=== PATIENT | male | born 1940 | race Caucasian/White ===

== ENCOUNTER 2020-01-14 08:53 | Inpatient (IN) | payer MEDICARE, OTHER ==
[~2020-01-14] VITALS: Ht 195.6 cm; Wt 109.5 kg
[2020-01-14] MEDS ORDERED: SODIUM CHLORIDE 0.9% 1,000ML IVBOLUS ONE (09:00)
[2020-01-14] MEDS ORDERED: SODIUM CHLORIDE FLUSH 10ML SYR IVF ONE (09:00)
[2020-01-14] MEDS ORDERED: methylPREDNISolone SOD SUCC 125 MG/2 ML IV ONE (09:00)
--- NOTE | 2020-01-14 09:25 | NUR ---
PT REQUESTED BREAK OFF BIPAP, BREAK GIVEN, WATERED PROVIDED, PLACED BACK ON MACHINE TOLERATED WELL
--- NOTE | 2020-01-14 09:50 | NUR ---
pt refusded to continue wearing bipap, requested nasal cannula only, placed on 6l nc, o2 sats [id number]
[2020-01-14 09:52] LABS: MEAN CORPUSCULAR HEMOGLOBIN 30.1 pg (27.5-34.5); MEAN CORPUSCULAR HGB CONC 31.8 g/dL (33.2-36.2); MEAN PLATELET VOLUME 7.7 fL (7.4-10.4); PLATELET COUNT 222 x10^3/uL (130-400); RED BLOOD COUNT 4.82 x10^6/uL (4.38-5.82); RED CELL DISTRIBUTION WIDTH 14.1 % (9.4-14.8)
[2020-01-14 10:00] LABS: ALANINE AMINOTRANSFERASE 26 U/L (12-78); ALBUMIN 3.4 g/dL (3.4-5.0); ANION GAP 9 mmol/L (5-15); CALCIUM 8.9 mg/dL (8.5-10.1); CHLORIDE 110 mmol/L (98-107)
[2020-01-14 10:05] LABS: ALKALINE PHOSPHATASE 147 U/L (45-117); BILIRUBIN,TOTAL 0.7 mg/dL (0.2-1.0); CREATININE 0.84 mg/dL (0.7-1.3); TOTAL PROTEIN 6.8 g/dL (6.4-8.2); TROPONIN I < 0.015 ng/mL (0.000-0.045)
[2020-01-14 10:19] LABS: MD YES
[2020-01-14 10:21] LABS: BAND#(MANUAL) 0.23 x10^3/uL; BANDS%(MANUAL) 1 % (0-7); EOS#(MANUAL) 0.23 x10^3/uL (0.0-0.4); EOS% (MANUAL) 1 % (1-7); LYMPH#(MANUAL) 2.49 x10^3/uL (1-3.4); LYMPHS% (MANUAL) 11 % (22-44); MONOS#(MANUAL) 0.68 x10^3/uL (0.3-2.7); MONOS% (MANUAL) 3 % (2-9); SEG#(MANUAL) 18.98 x10^3/uL (1.8-6.8); SEGS% (MANUAL) 84 % (42-75)
[2020-01-14 10:22] LABS: <PLATELET ESTIMATE> ADEQUATE; <PLT MORPHOLOGY> NORMAL PLT MORPH; <RBC MORPHOLOGY> NORMAL
[2020-01-14] MEDS ORDERED: VANCOMYCIN PER PHARMACY MC PRN ×2 (10:30→12:00)
[2020-01-14] MEDS ORDERED: PHARMACOKINETIC CONSULTATION MC ONE (10:30)
[2020-01-14] MEDS ORDERED: VANCOMYCIN PMX 1GM/200ML 200 ML IV ONE (10:30)
[2020-01-14] MEDS ORDERED: PIPERACILLIN/TAZO/PMX 3.375GM 50 ML IV ONE (10:30)
[2020-01-14] MEDS ORDERED: OMNIPAQUE 350 MG/ML, 75ML BOTTLE ONE (10:38)
[2020-01-14] MEDS ORDERED: PIPERACILLIN/TAZO/PMX 3.375GM 50 ML ONE ×2 (10:52→18:07)
[2020-01-14 10:59] LABS: INTERNATIONAL NORMALIZED RATIO 1.08 (0.93-1.1); PROTHROMBIN TIME 11.4 Seconds (9.6-11.5)
[2020-01-14] MEDS ORDERED: VANCOMYCIN 2,500 MG in SODIUM CHLORIDE 0.9% 500 ML IV ONE (11:00)
--- NOTE | 2020-01-14 11:40 | NUR ---
TASK RN: SUDHA KINGSLEY, VANCOMYCIN ADMINISTERED PER EMAR PATIENT TOLERATING 6L NC WITH MINIMAL WOB, POX 94% PROVIDED WITH WATER/HOSPITAL BED ORDERED
[2020-01-14] MEDS ORDERED: POLYETHYLENE GLYCOL 17 GM PACKET PO PRN (12:00)
[2020-01-14] MEDS ORDERED: ENALAPRILAT 1.25 MG/ML, 2ML IVPush PRN (12:00)
[2020-01-14] MEDS ORDERED: ONDANSETRON 2MG/ML, 2ML IVPush PRN (12:00)
[2020-01-14] MEDS ORDERED: BISACODYL 10 MG SUPP PR PRN (12:00)
[2020-01-14] MEDS ORDERED: ACETAMINOPHEN 325 MG TABLET PO PRN (12:00)
[2020-01-14] MEDS: PIPERACILLIN/TAZO/PMX 3.375GM 50 ML IV SCH ×2 (12:00→18:13)
[2020-01-14] MEDS ORDERED: LABETALOL 5MG/ML, 20ML IVPush PRN (12:00)
--- NOTE | 2020-01-14 14:00 | NUR ---
lila infuisning, water given pt dozing on and off awaiting admit
[2020-01-14] MEDS ORDERED: APIX5TAB PO (18:19)
[2020-01-14] MEDS ORDERED: ATOR40TA78 PO (18:19)
[2020-01-14] MEDS ORDERED: GABA300C PO (18:19)
[2020-01-14] MEDS ORDERED: LATA2.5D2 EACHEYE (18:19)
[2020-01-14] MEDS ORDERED: TIOT18CA INH (18:19)
[2020-01-14] MEDS ORDERED: ZOLP10TA PO (18:19)
[2020-01-14] MEDS ORDERED: OMEP20TA62 PO (18:22)
[2020-01-14] MEDS ORDERED: LOSA100T2 PO (18:22)
[2020-01-14] MEDS ORDERED: DORZ10DR21 EACHEYE (18:22)
[2020-01-14] MEDS ORDERED: AMLO-150 PO (18:22)
[2020-01-14 19:23] VITALS: BP 125/72
[2020-01-14] MEDS ORDERED: PHARMACOKINETIC MONITORING MC PRN (20:00)
[2020-01-14] MEDS ORDERED: APIXABAN 5 MG TABLET PO SCH (20:00)
[2020-01-14] MEDS ORDERED: ZOLPIDEM 10MG TABLET PO ONE (21:00)
[2020-01-14] MEDS ORDERED: DORZOLAMIDE OPHTH 2%, 10ML EACHEYE SCH (21:00)
[2020-01-14] MEDS: APIXABAN 5 MG TABLET PO SCH (21:55)
[2020-01-14] MEDS: LATANOPROST OPHTH 0.005%, 2.5ML EACHEYE SCH (21:56)
[2020-01-14] MEDS ORDERED: BRIM5DRO3 EACHEYE (22:04)
[2020-01-14] MEDS ORDERED: ARTIFICIAL TEARS 15 DROP/ML BOTTLE EACHEYE PRN (22:30)
[2020-01-14] MEDS: BRIMONIDINE TART. OPHTH 0.2%, 5ML EACHEYE SCH (22:31)
[2020-01-15] MEDS: PIPERACILLIN/TAZO/PMX 3.375GM 50 ML IV SCH ×4 (00:29→18:07)
[2020-01-15 01:19] VITALS: BP 117/64
[2020-01-15 06:32] LABS: BASOPHILS % (AUTO) 0 % (0-1); EOSINOPHILS % (AUTO) 1 % (1-7); LYMPHOCYTES % (AUTO) 8 % (22-44); MEAN CORPUSCULAR HEMOGLOBIN 30.4 pg (27.5-34.5); MEAN CORPUSCULAR HGB CONC 32.3 g/dL (33.2-36.2); MEAN PLATELET VOLUME 7.9 fL (7.4-10.4); MONOCYTES % (AUTO) 8 % (2-9); NEUTROPHILS % (AUTO) 83 % (42-75); PLATELET COUNT 176 x10^3/uL (130-400); RED BLOOD COUNT 3.98 x10^6/uL (4.38-5.82); RED CELL DISTRIBUTION WIDTH 14.2 % (9.4-14.8)
[2020-01-15 06:37] LABS: ALANINE AMINOTRANSFERASE 18 U/L (12-78); ANION GAP 5 mmol/L (5-15); CALCIUM 8.8 mg/dL (8.5-10.1); CHLORIDE 112 mmol/L (98-107); CREATININE 0.58 mg/dL (0.7-1.3)
[2020-01-15 06:39] LABS: ALKALINE PHOSPHATASE 111 U/L (45-117); BILIRUBIN,TOTAL 0.8 mg/dL (0.2-1.0); TOTAL PROTEIN 5.9 g/dL (6.4-8.2)
[2020-01-15 06:52] VITALS: BP 131/80
[2020-01-15 07:32] LABS: MD SCAN
[2020-01-15] MEDS ORDERED: APIXABAN 5 MG TABLET PO SCH (08:00)
[2020-01-15] MEDS: APIXABAN 5 MG TABLET PO SCH ×2 (08:31→20:43)
[2020-01-15] MEDS: BRIMONIDINE TART. OPHTH 0.2%, 5ML EACHEYE SCH ×2 (08:32→20:45)
[2020-01-15] MEDS: SENNA/DOCUSATE TABLET PO SCH (08:46)
[2020-01-15] MEDS ORDERED: DORZOLAMIDE OPHTH 2%, 10ML EACHEYE SCH (09:00)
[2020-01-15] MEDS ORDERED: TIOTROPIUM BROMIDE 18 MCG/INH INH SCH (09:00)
[2020-01-15] MEDS: VANCOMYCIN 2,000 MG in SODIUM CHLORIDE 0.9% 500 ML IV SCH (11:00)
[2020-01-15 12:31] VITALS: BP 127/74
[2020-01-15] MEDS: TIOTROPIUM BROMIDE 18 MCG/INH INH SCH (13:00)
[2020-01-15] MEDS: OMEPRAZOLE 20 MG CAPSULE.DR PO SCH (13:20)
[2020-01-15] MEDS: GABAPENTIN 300 MG CAPSULE PO SCH ×3 (13:20→20:42)
[2020-01-15] MEDS: AMLODIPINE 5 MG TABLET PO SCH (13:20)
[2020-01-15] MEDS: LOSARTAN 100 MG TAB PO SCH (13:20)
[2020-01-15] MEDS: ATORVASTATIN 40 MG TABLET PO SCH (20:42)
[2020-01-15] MEDS: MELATONIN 5 MG TABLET PO SCH (20:43)
[2020-01-15] MEDS: LATANOPROST OPHTH 0.005%, 2.5ML EACHEYE SCH (20:44)
[2020-01-15] MEDS: DORZOLAMIDE OPHTH 2%, 10ML EACHEYE SCH (20:45)
[2020-01-15] MEDS: TIMOLOL OPHTH 0.5%, 5ML EACHEYE SCH (20:46)
[2020-01-15] MEDS: TEMAZEPAM 15 MG CAPSULE PO PRN (20:49)
[2020-01-15 20:52] VITALS: BP 118/70
[2020-01-15] MEDS ORDERED: LATANOPROST OPHTH 0.005%, 2.5ML EACHEYE SCH (21:00)
[2020-01-15] MEDS ORDERED: TIMOLOL OPHTH 0.5%, 5ML EACHEYE SCH (21:00)
[2020-01-15] MEDS ORDERED: TEMPLATE NON-FORMULARY MED. (Brimonidine Tartrate** (Alphagan P**) 1 DROP(S)) EACHEYE SCH (21:00)
[2020-01-16] MEDS: PIPERACILLIN/TAZO/PMX 3.375GM 50 ML IV SCH ×4 (00:14→18:16)
[2020-01-16 00:18] VITALS: BP 113/66
[2020-01-16 07:16] VITALS: BP 122/80
[2020-01-16] MEDS: AMLODIPINE 5 MG TABLET PO SCH (08:01)
[2020-01-16] MEDS: OMEPRAZOLE 20 MG CAPSULE.DR PO SCH (08:01)
[2020-01-16] MEDS: GABAPENTIN 300 MG CAPSULE PO SCH ×3 (08:02→20:18)
[2020-01-16] MEDS: APIXABAN 5 MG TABLET PO SCH ×2 (08:03→20:20)
[2020-01-16] MEDS: LOSARTAN 100 MG TAB PO SCH (08:04)
[2020-01-16] MEDS: BRIMONIDINE TART. OPHTH 0.2%, 5ML EACHEYE SCH ×2 (08:06→20:18)
[2020-01-16] MEDS: SENNA/DOCUSATE TABLET PO SCH (08:08)
[2020-01-16] MEDS: TIOTROPIUM BROMIDE 18 MCG/INH INH SCH (09:54)
[2020-01-16] MEDS: VANCOMYCIN 2,000 MG in SODIUM CHLORIDE 0.9% 500 ML IV SCH (10:44)
[2020-01-16 12:35] VITALS: BP 136/63
[2020-01-16 19:47] VITALS: BP 128/81
[2020-01-16] MEDS: DORZOLAMIDE OPHTH 2%, 10ML EACHEYE SCH (20:15)
[2020-01-16] MEDS: LATANOPROST OPHTH 0.005%, 2.5ML EACHEYE SCH (20:15)
[2020-01-16] MEDS: TIMOLOL OPHTH 0.5%, 5ML EACHEYE SCH (20:18)
[2020-01-16] MEDS: MELATONIN 5 MG TABLET PO SCH (20:19)
[2020-01-16] MEDS: ATORVASTATIN 40 MG TABLET PO SCH (20:20)
[2020-01-16] MEDS: TEMAZEPAM 15 MG CAPSULE PO PRN ×2 (21:27→22:28)
[2020-01-17] MEDS: PIPERACILLIN/TAZO/PMX 3.375GM 50 ML IV SCH ×2 (00:30→06:29)
[2020-01-17 00:46] VITALS: BP 100/57
[2020-01-17 05:25] LABS: BASOPHILS % (AUTO) 0 % (0-1); EOSINOPHILS % (AUTO) 1 % (1-7); LYMPHOCYTES % (AUTO) 13 % (22-44); MEAN CORPUSCULAR HEMOGLOBIN 30.7 pg (27.5-34.5); MEAN CORPUSCULAR HGB CONC 32.4 g/dL (33.2-36.2); MEAN PLATELET VOLUME 7.9 fL (7.4-10.4); MONOCYTES % (AUTO) 9 % (2-9); NEUTROPHILS % (AUTO) 77 % (42-75); PLATELET COUNT 170 x10^3/uL (130-400); RED BLOOD COUNT 3.86 x10^6/uL (4.38-5.82); RED CELL DISTRIBUTION WIDTH 13.3 % (9.4-14.8)
[2020-01-17 05:27] LABS: ANION GAP 5 mmol/L (5-15); CALCIUM 8.7 mg/dL (8.5-10.1); CHLORIDE 111 mmol/L (98-107)
[2020-01-17 05:30] LABS: CREATININE 0.59 mg/dL (0.7-1.3)
[2020-01-17 05:38] LABS: MD NO
[2020-01-17] MEDS ORDERED: PRED5TAB PO (07:56)
[2020-01-17] MEDS ORDERED: OMEP20TA62 PO (07:56)
[2020-01-17] MEDS ORDERED: AMOX1TAB61 PO (07:56)
[2020-01-17] MEDS ORDERED: OMEPRAZOLE 20 MG CAPSULE.DR PO SCH (08:00)
[2020-01-17] MEDS: BRIMONIDINE TART. OPHTH 0.2%, 5ML EACHEYE SCH (08:09)
[2020-01-17] MEDS: AMLODIPINE 5 MG TABLET PO SCH (08:14)
[2020-01-17] MEDS: LOSARTAN 100 MG TAB PO SCH (08:15)
[2020-01-17] MEDS: GABAPENTIN 300 MG CAPSULE PO SCH (08:15)
[2020-01-17] MEDS: APIXABAN 5 MG TABLET PO SCH (08:15)
[2020-01-17] MEDS: SENNA/DOCUSATE TABLET PO SCH (08:16)
[2020-01-17] MEDS ORDERED: FLU VACC QS2020-21(6MOS UP)/PF 60MCG/0.5 ML SYR IM-VACC ONE (08:30)
[2020-01-17 09:32] VITALS: BP 118/76
== END 2020-01-17 10:25 | disposition home or self-care (01) | DRG 871 ==
LOC: ED 12:17 → EDIP 19:16 → 4WST 19:19 → DCLOUNGE 01-17 10:20
PROVIDERS: ADMIT Internal Medicine; ATTEND Hospitalist
PROC: 5A09357 Assistance with Respiratory Ventilation, Less than 24 Consecutive Hours, Continuous Positive Airway Pressure (ICD-10-PCS; principal; 2020-01-14)
DX: A41.9 Sepsis, unspecified organism (principal); J96.01 Acute respiratory failure with hypoxia; J69.0 Pneumonitis due to inhalation of food and vomit; D84.9 Immunodeficiency, unspecified; I48.20 Chronic atrial fibrillation, unspecified; E78.5 Hyperlipidemia, unspecified; G47.00 Insomnia, unspecified; H40.9 Unspecified glaucoma; I10 Essential (primary) hypertension; K21.9 Gastro-esophageal reflux disease without esophagitis; M35.3 Polymyalgia rheumatica; R65.20 Severe sepsis without septic shock; T17.918A Gastric contents in respiratory tract, part unspecified causing other injury, initial encounter; Y95 Nosocomial condition; Z66 Do not resuscitate; Z79.52 Long term (current) use of systemic steroids; Z82.49 Family history of ischemic heart disease and other diseases of the circulatory system; Z86.711 Personal history of pulmonary embolism; Z86.73 Personal history of transient ischemic attack (TIA), and cerebral infarction without residual deficits; Z87.891 Personal history of nicotine dependence; Z95.2 Presence of prosthetic heart valve
CPT/HCPCS: 36415; 36600; 71045; 71275; 74220; 74230; 80048; 80053; 82803; 83605; 83880; 84484; 85025; 85610; 85730; 87040; 87081; 90686; 93005; 94640; 94660; 96361; 96365; 99291; G0378; J2543; J3370; Q9967; J7030; J7040; J7512